=== PATIENT | male | born 1990 | race Hispanic/Latino ===

== ENCOUNTER 2022-07-19 17:45 | Emergency (ER) | payer SELFPAY ==
[~2022-07-19] VITALS: Ht 175.3 cm; Wt 142.9 kg
== END 2022-07-19 19:29 | disposition home or self-care (01) ==
LOC: ED 17:45
DX: F32.A Depression, unspecified (principal); I10 Essential (primary) hypertension; Z88.1 Allergy status to other antibiotic agents
CPT/HCPCS: 99284